=== PATIENT | male | born 1995 | race African-American/Black ===

== ENCOUNTER 2019-08-11 19:31 | Emergency (ER) | payer BC ==
[~2019-08-11] VITALS: Ht 165.1 cm; Wt 51.7 kg
--- NOTE | 2019-08-11 20:00 | NUR ---
DR. AVILA AT BEDSIDE FOR MSE.
[2019-08-11] MEDS ORDERED: IBUPROFEN 600 MG TABLET ONE (20:22)
[2019-08-11] MEDS: IBUPROFEN 600 MG TABLET PO ONE (20:23)
[2019-08-11] MEDS: IV NS 1000 ML 1,000 ML IV ONE (20:53)
--- NOTE | 2019-08-11 21:33 | NUR ---
Patient states "I feel alot better now."
--- NOTE | 2019-08-11 21:37 | NUR ---
IV removed. Catheter intact and site benign. Pressure and 4x4 gauze applied to site. No bleeding noted.
[2019-08-11 21:38] VITALS: BP 135/72
--- NOTE | 2019-08-11 21:42 | NUR ---
Patient discharged to home in stable conditon with girlfriend taking patient home. Written and verbal after care instructions given. Patient verbalizes understanding of instructions. Walked out of ER with no distress noted.
== END 2019-08-11 21:43 | disposition home or self-care (01) ==
LOC: ER 19:34
DX: J02.9 Acute pharyngitis, unspecified (principal); R05 Cough; R51 Headache; F17.200 Nicotine dependence, unspecified, uncomplicated
CPT/HCPCS: A4663; J7030